=== PATIENT | female | born 1955 | race African-American/Black ===

== ENCOUNTER 2024-11-06 19:08 | Emergency (ER) | payer OTHER ==
[2024-11-06 19:17] VITALS: BP 128/78; PULSE 104; RESP 20; TEMP 98.6; BMI 27.1
[2024-11-06] MEDS ORDERED: ALBUTEROL SO4 2.5/IPRATROPIUM 0.5 INH SOL 3 ML VIAL.NEB. NEB ONE (21:14)
[2024-11-06] MEDS: ALBUTEROL SO4 2.5/IPRATROPIUM 0.5 INH SOL 3 ML VIAL.NEB. NEB ONE (21:30)
[2024-11-06 22:25] LABS: BASO % 0.3 % (0-2.0); HEMATOCRIT 41.3 % (32.4-45.2); LYMPH % 15.5 % (8-40); MCH 30.9 pg (25.7-33.7); MCHC 33.9 g/dl (32.0-36.0); MEAN CELL VOLUME 91.3 fl (80-96); MEAN PLT VOLUME 7.4 fl (7.5-11.1); MONO % 3.4 % (3.8-10.2); NEUT % 80.8 % (42.8-82.8); PLATELET COUNT 247 10^3/uL (134-434); RBC 4.53 M/mm3 (3.60-5.2); RDW 15.5 % (11.6-15.6); WHITE BLOOD COUNT 6.1 K/mm3 (4.0-10.0)
[2024-11-06 22:44] LABS: POTASSIUM 4.2 mmol/L (3.5-5.1)
[2024-11-06 22:46] LABS: ALBUMIN 3.8 g/dl (3.4-5.0); BLOOD UREA NITROGEN 17.6 mg/dL (7-18); CALCIUM 9.8 mg/dL (8.5-10.1); MAGNESIUM 2.1 mg/dL (1.8-2.4)
[2024-11-06 22:50] LABS: INR 1.07 (0.83-1.09); PROTHROMBIN TIME (PATIENT) 11.7 SEC (9.7-13.0)
[2024-11-06 22:51] LABS: BILIRUBIN,TOTAL 0.7 mg/dL (0.2-1); TOT PROT 6.8 g/dl (6.4-8.2)
[2024-11-06 22:52] LABS: ACTIVATED PTT 27.9 SECONDS (25.2-36.5)
[2024-11-06 22:54] LABS: N-TERMINAL BNP 41.1 pg/ml (5-125)
== END 2024-11-06 23:52 | disposition home or self-care (01) ==
LOC: JER 19:08
PROC: 3E0F7GC Introduction of Other Therapeutic Substance into Respiratory Tract, Via Natural or Artificial Opening (ICD-10-PCS; principal; 2024-11-06)
DX: J45.30 Mild persistent asthma, uncomplicated (principal); R06.02 Shortness of breath; R00.0 Tachycardia, unspecified; Z20.822 Contact with and (suspected) exposure to COVID-19
CPT/HCPCS: 0241U-QW; 36415; 71045-TC-FY; 80053; 83735; 83880; 84484; 85025; 85379; 85610; 85730; 93005; 93010; 99285-25

== ENCOUNTER 2024-11-08 12:08 | Observation (INO) | payer OTHER ==
[2024-11-08 12:14] VITALS: BMI 27.1
[2024-11-08 14:07] LABS: BASO % 0.1 % (0-2.0); EOS % 0.1 % (0-4.5); HEMATOCRIT 43.6 % (32.4-45.2); HEMOGLOBIN 15.1 GM/dL (10.7-15.3); LYMPH % 11.9 % (8-40); MCH 31.3 pg (25.7-33.7); MCHC 34.6 g/dl (32.0-36.0); MEAN CELL VOLUME 90.5 fl (80-96); MEAN PLT VOLUME 8.5 fl (7.5-11.1); MONO % 2.9 % (3.8-10.2); PLATELET COUNT 348 10^3/uL (134-434); RBC 4.82 M/mm3 (3.60-5.2); RDW 15.4 % (11.6-15.6); WHITE BLOOD COUNT 7.7 K/mm3 (4.0-10.0)
[2024-11-08 14:15] LABS: INR 0.97 (0.83-1.09); PROTHROMBIN TIME (PATIENT) 10.6 SEC (9.7-13.0)
[2024-11-08 14:18] LABS: ACTIVATED PTT 18.9 SECONDS (25.2-36.5)
[2024-11-08] MEDS ORDERED: ALBUTEROL SO4 2.5/IPRATROPIUM 0.5 INH SOL 3 ML VIAL.NEB. NEB ONE (14:23)
[2024-11-08 14:25] LABS: VENOUS BASE EXCESS 1.2 mmol/L (-2-2); VENOUS O2 SATURATION 87.6 % (70-80); VENOUS PCO2 24.1 mmHg (38-52); VENOUS PH 7.565 (7.310-7.410)
[2024-11-08] MEDS: ALBUTEROL SO4 2.5/IPRATROPIUM 0.5 INH SOL 3 ML VIAL.NEB. NEB SCH (14:26)
[2024-11-08 14:35] LABS: POTASSIUM 4.8 mmol/L (3.5-5.1)
[2024-11-08 14:39] LABS: ALBUMIN 3.6 g/dl (3.4-5.0); BLOOD UREA NITROGEN 19.8 mg/dL (7-18); CALCIUM 9.7 mg/dL (8.5-10.1)
[2024-11-08 14:42] LABS: CREATININE 1.1 mg/dL (0.55-1.3)
[2024-11-08 14:43] LABS: BILIRUBIN,TOTAL 1.4 mg/dL (0.2-1); TOT PROT 7.2 g/dl (6.4-8.2)
[2024-11-08 14:44] LABS: N-TERMINAL BNP 26.9 pg/ml (5-125)
[2024-11-08] MEDS: LACTATED RINGERS SOLUTION 1,000 ML/1,000 ML INFUS.BAG IV SCH (18:22)
[2024-11-08] MEDS ORDERED: LEVALBUTEROL HCL 0.63 MG/3 ML VIAL.NEB. IH ONE (19:27)
[2024-11-08] MEDS ORDERED: LEVALBUTEROL HCL 0.31 MG/3 ML VIAL.NEB IH ONE (19:27)
[2024-11-08] MEDS: LEVALBUTEROL HCL 0.31 MG/3 ML VIAL.NEB IH SCH (19:32)
[2024-11-08] MEDS ORDERED: ZOLPIDEM TARTRATE 5 MG TABLET ONE (20:59)
[2024-11-08] MEDS ORDERED: ATORVASTATIN CA 20 MG TABLET (FP) ONE (21:00)
[2024-11-08] MEDS ORDERED: HEPARIN NA (PORCINE) 5,000 UNITS/ML 1ML VIAL ONE (21:00)
[2024-11-08] MEDS: ZOLPIDEM TARTRATE 5 MG TABLET PO ONE (21:06)
[2024-11-08] MEDS: HEPARIN NA (PORCINE) 5,000 UNITS/ML 1ML VIAL SQ SCH (21:07)
[2024-11-08] MEDS: ATORVASTATIN CA 20 MG TABLET (FP) PO SCH (21:07)
[2024-11-09 07:55] LABS: BASO % 0.4 % (0-2.0); EOS % 0.6 % (0-4.5); HEMATOCRIT 44.3 % (32.4-45.2); HEMOGLOBIN 15.1 GM/dL (10.7-15.3); LYMPH % 33.1 % (8-40); MCHC 34.1 g/dl (32.0-36.0); MEAN CELL VOLUME 90.8 fl (80-96); MEAN PLT VOLUME 7.3 fl (7.5-11.1); MONO % 7.3 % (3.8-10.2); NEUT % 58.6 % (42.8-82.8); PLATELET COUNT 262 10^3/uL (134-434); RBC 4.88 M/mm3 (3.60-5.2); RDW 15.6 % (11.6-15.6); WHITE BLOOD COUNT 8.7 K/mm3 (4.0-10.0)
[2024-11-09 08:32] VITALS: TEMP 97.9
[2024-11-09] MEDS: predniSONE 20 MG TABLET (UD) PO SCH (10:37)
[2024-11-09] MEDS: SPIRONOLACTONE 25 MG TABLET PO SCH (10:37)
[2024-11-09] MEDS: FLUTICASONE/UMECLIDIN/VILANTER(200-62.5-25 TRELEGY ELLIPTA) INAHLER IH SCH (10:37)
[2024-11-09] MEDS: CLOPIDOGREL BISULFATE 75 MG TABLET (FP) PO SCH (10:37)
[2024-11-09] MEDS: LOSARTAN POTASSIUM 50 MG TABLET PO SCH (10:37)
[2024-11-09 13:37] LABS: BASO % 0.3 % (0-2.0); HEMATOCRIT 42.4 % (32.4-45.2); HEMOGLOBIN 14.5 GM/dL (10.7-15.3); LYMPH % 10.2 % (8-40); MCH 31.1 pg (25.7-33.7); MCHC 34.2 g/dl (32.0-36.0); MEAN CELL VOLUME 91.1 fl (80-96); MEAN PLT VOLUME 7.5 fl (7.5-11.1); MONO % 2.5 % (3.8-10.2); PLATELET COUNT 261 10^3/uL (134-434); RBC 4.66 M/mm3 (3.60-5.2); RDW 15.5 % (11.6-15.6); WHITE BLOOD COUNT 7.4 K/mm3 (4.0-10.0)
[2024-11-09 14:00] LABS: POTASSIUM 3.8 mmol/L (3.5-5.1)
[2024-11-09 14:02] LABS: BLOOD UREA NITROGEN 20.4 mg/dL (7-18); CALCIUM 9.2 mg/dL (8.5-10.1); MAGNESIUM 2.1 mg/dL (1.8-2.4)
[2024-11-09 15:28] VITALS: BP 127/80; PULSE 78; RESP 18
== END 2024-11-09 18:26 | disposition home or self-care (01) ==
LOC: JER 12:08 → JERBED 17:08 → J4S 11-09 02:25
PROVIDERS: ADMIT Internal Medicine
PROC: 3E0F7GC Introduction of Other Therapeutic Substance into Respiratory Tract, Via Natural or Artificial Opening (ICD-10-PCS; principal; 2024-11-08)
PROC: 3E0337Z Introduction of Electrolytic and Water Balance Substance into Peripheral Vein, Percutaneous Approach (ICD-10-PCS; 2024-11-08)
DX: J45.901 Unspecified asthma with (acute) exacerbation (principal); E78.5 Hyperlipidemia, unspecified; F41.9 Anxiety disorder, unspecified; I10 Essential (primary) hypertension; Z86.73 Personal history of transient ischemic attack (TIA), and cerebral infarction without residual deficits; Z90.79 Acquired absence of other genital organ(s); Z88.8 Allergy status to other drugs, medicaments and biological substances
CPT/HCPCS: 0241U-QW; 36415; 71046-TC-FY; 71275-TC; 80048; 80053; 82803; 83735; 83880; 84484; 85025; 85027; 85610; 85730; 93005; 93010; 94640; 96360; 99285-25; G0378; J1644

== ENCOUNTER 2024-11-24 05:50 | Observation (INO) | payer OTHER ==
[2024-11-24] MEDS: ONDANSETRON 4 MG/2 ML VIAL IVPB ONE (06:43)
[2024-11-24] MEDS ORDERED: ONDANSETRON *ODT* 4 MG TABLET ONE (06:46)
[2024-11-24] MEDS: LORazepam 2 MG TABLET PO ONE (06:49)
[2024-11-24] MEDS: ONDANSETRON 4 MG TABLET PO ONE (06:49)
[2024-11-24 06:57] LABS: HEMOGLOBIN 14.5 GM/dL (10.7-15.3); MCHC 33.6 g/dl (32.0-36.0); MEAN CELL VOLUME 92.2 fl (80-96); PLATELET COUNT 258 10^3/uL (134-434); RBC 4.66 M/mm3 (3.60-5.2); RDW 14.7 % (11.6-15.6); WHITE BLOOD COUNT 7.9 K/mm3 (4.0-10.0)
[2024-11-24 07:18] LABS: POTASSIUM 3.6 mmol/L (3.5-5.1)
[2024-11-24 07:19] LABS: CALCIUM 9.1 mg/dL (8.5-10.1)
[2024-11-24 07:20] LABS: ALBUMIN 3.5 g/dl (3.4-5.0); BLOOD UREA NITROGEN 13.3 mg/dL (7-18)
[2024-11-24 07:23] LABS: CREATININE 0.9 mg/dL (0.55-1.3)
[2024-11-24 07:24] LABS: BILIRUBIN,TOTAL 1.2 mg/dL (0.2-1)
[2024-11-24 07:25] LABS: TOT PROT 6.1 g/dl (6.4-8.2)
[2024-11-24 07:48] LABS: CHLORIDE 85 mmol/L (98-107); POTASSIUM 4.8 mmol/L (3.5-5.1)
[2024-11-24 07:50] LABS: CALCIUM 9.3 mg/dL (8.5-10.1)
[2024-11-24 07:51] LABS: HEMOGLOBIN 14.8 GM/dL (10.7-15.3); MCH 31.4 pg (25.7-33.7); MCHC 34.3 g/dl (32.0-36.0); MEAN CELL VOLUME 91.4 fl (80-96); MEAN PLT VOLUME 7.2 fl (7.5-11.1); PLATELET COUNT 267 10^3/uL (134-434); RBC 4.71 M/mm3 (3.60-5.2); RDW 14.7 % (11.6-15.6); WHITE BLOOD COUNT 6.8 K/mm3 (4.0-10.0)
[2024-11-24 07:51] LABS: ALBUMIN 3.6 g/dl (3.4-5.0); BLOOD UREA NITROGEN 12.5 mg/dL (7-18); CO2 23 mmol/L (21-32); GLUCOSE,RANDOM 118 mg/dL (74-106)
[2024-11-24 07:53] LABS: SGOT/AST 39 U/L (15-37)
[2024-11-24 07:54] LABS: SGPT/ALT 23 U/L (13-61)
[2024-11-24 07:55] LABS: BILIRUBIN,TOTAL 1.4 mg/dL (0.2-1); TOT PROT 6.6 g/dl (6.4-8.2)
[2024-11-24 08:17] LABS: ANION GAP 11 mmol/L (4-13); SODIUM 119 mmol/L (136-145)
[2024-11-24 08:18] LABS: ALK PHOS 78 U/L (45-117)
[2024-11-24 08:27] LABS: VENOUS BASE EXCESS -1.5 mmol/L (-2-2); VENOUS O2 SATURATION 47.6 % (70-80); VENOUS PCO2 34.5 mmHg (38-52); VENOUS PH 7.425 (7.310-7.410)
[2024-11-24] MEDS: SODIUM CHLORIDE 0.9% 500 ML INFUS.BAG IV ONE (09:20)
[2024-11-24 09:31] LABS: ANISOCYTOSIS 0; HELMET CELLS 0; HOWELL-JOLLY BODIES 0; MACROCYTOSIS 0; OVALOCYTE 0; ROULEAU 0; SICKELED CELLS 0; TARGET CELLS 0; TEAR DROP CELLS 0; TOXIC GRANULATION 0
[2024-11-24] MEDS ORDERED: ATORVASTATIN CA 20 MG TABLET (FP) ONE ×2 (11:24→11:41)
[2024-11-24] MEDS ORDERED: CLOPIDOGREL BISULFATE 75 MG TABLET (FP) ONE (11:24)
[2024-11-24] MEDS ORDERED: LOSARTAN POTASSIUM 50 MG TABLET ONE (11:24)
[2024-11-24] MEDS ORDERED: SPIRONOLACTONE 25 MG TABLET ONE (11:24)
[2024-11-24] MEDS: SPIRONOLACTONE 25 MG TABLET PO ONE (11:44)
[2024-11-24] MEDS: LOSARTAN POTASSIUM 50 MG TABLET PO ONE (11:45)
[2024-11-24] MEDS: ATORVASTATIN CA 20 MG TABLET (FP) PO ONE (11:45)
[2024-11-24] MEDS: ISOSORBIDE DINITRATE 5 MG TABLET PO ONE (11:45)
[2024-11-24] MEDS: ISOSORBIDE DINITRATE 10 MG TABLET PO ONE (11:46)
[2024-11-24] MEDS: CLOPIDOGREL BISULFATE 75 MG TABLET (FP) PO ONE (11:46)
[2024-11-24 12:01] LABS: ANISOCYTOSIS 0; HELMET CELLS 0; HOWELL-JOLLY BODIES 0; MACROCYTOSIS 0; OVALOCYTE 0; ROULEAU 0; SICKELED CELLS 0; TARGET CELLS 0; TEAR DROP CELLS 0; TOXIC GRANULATION 0
[2024-11-24 13:47] LABS: PH,URINE 7.5 (5.0-8.0); URINE APPEARANCE CLEAR; URINE BILIRUBIN NEGATIVE (NEGATIVE); URINE COLOR YELLOW; URINE GLUCOSE (UA) NEGATIVE (NEGATIVE); URINE KETONE NEGATIVE (NEGATIVE); URINE LEUK ESTERASE NEGATIVE (NEGATIVE); URINE NITRITE NEGATIVE (NEGATIVE); URINE PROTEIN NEGATIVE (NEGATIVE); URINE UROBILINOGEN 0.2 mg/dL (0.2-1.0)
[2024-11-24 13:47] LABS: POTASSIUM 3.8 mmol/L (3.5-5.1)
[2024-11-24 13:50] LABS: BLOOD UREA NITROGEN 9.3 mg/dL (7-18)
[2024-11-24 13:53] LABS: CREATININE 0.9 mg/dL (0.55-1.3)
[2024-11-24 17:08] LABS: BILIRUBIN,DIRECT 0.3 mg/dL (0.0-0.2)
[2024-11-24 18:23] VITALS: BMI 26.8
[2024-11-24] MEDS: MELATONIN 5 MG TABLETS PO PRN (20:24)
[2024-11-24] MEDS: MELATONIN 5 MG TABLETS PO ONE (20:25)
[2024-11-24 21:18] LABS: POTASSIUM 3.9 mmol/L (3.5-5.1)
[2024-11-24 21:20] LABS: CALCIUM 8.9 mg/dL (8.5-10.1)
[2024-11-24 21:21] LABS: BLOOD UREA NITROGEN 15.2 mg/dL (7-18)
[2024-11-24 21:24] LABS: CREATININE 1.1 mg/dL (0.55-1.3)
[2024-11-24 23:31] LABS: BLOOD UREA NITROGEN 17.3 mg/dL (7-18); CALCIUM 8.9 mg/dL (8.5-10.1)
[2024-11-25 09:42] LABS: POTASSIUM 3.8 mmol/L (3.5-5.1)
[2024-11-25 09:48] LABS: CALCIUM 9.3 mg/dL (8.5-10.1)
[2024-11-25 09:49] LABS: ALBUMIN 3.5 g/dl (3.4-5.0); BLOOD UREA NITROGEN 13.2 mg/dL (7-18)
[2024-11-25 09:52] LABS: CREATININE 1.1 mg/dL (0.55-1.3)
[2024-11-25 09:54] LABS: TOT PROT 6.4 g/dl (6.4-8.2)
[2024-11-25 09:55] LABS: BILIRUBIN,TOTAL 1.3 mg/dL (0.2-1)
[2024-11-25] MEDS: ENOXAPARIN NA (PORCINE) 40 MG/0.4 ML DISP.SYRIN SQ SCH (11:31)
[2024-11-25] MEDS: CLOPIDOGREL BISULFATE 75 MG TABLET (FP) PO SCH ×2 (11:32)
[2024-11-25] MEDS: LOSARTAN POTASSIUM 50 MG TABLET PO SCH (11:32)
[2024-11-25] MEDS: FLUTICASONE/UMECLIDIN/VILANTER(200-62.5-25 TRELEGY ELLIPTA) INAHLER IH SCH (15:20)
[2024-11-25 17:42] VITALS: RESP 18
[2024-11-25] MEDS: ATORVASTATIN CA 20 MG TABLET (FP) PO SCH (21:18)
[2024-11-26 06:02] VITALS: TEMP 98.1
[2024-11-26 09:25] LABS: BASO % 0.3 % (0-2.0); EOS % 0.6 % (0-4.5); HEMATOCRIT 43.1 % (32.4-45.2); HEMOGLOBIN 14.4 GM/dL (10.7-15.3); LYMPH % 26.1 % (8-40); MCH 30.6 pg (25.7-33.7); MCHC 33.5 g/dl (32.0-36.0); MEAN CELL VOLUME 91.3 fl (80-96); MONO % 7.9 % (3.8-10.2); NEUT % 65.1 % (42.8-82.8); PLATELET COUNT 250 10^3/uL (134-434); RBC 4.72 M/mm3 (3.60-5.2); RDW 15.3 % (11.6-15.6); WHITE BLOOD COUNT 5.9 K/mm3 (4.0-10.0)
[2024-11-26 09:42] LABS: POTASSIUM 3.3 mmol/L (3.5-5.1)
[2024-11-26 09:45] LABS: BLOOD UREA NITROGEN 14.2 mg/dL (7-18); CALCIUM 8.7 mg/dL (8.5-10.1)
[2024-11-26 09:49] LABS: CREATININE 0.9 mg/dL (0.55-1.3)
[2024-11-26 09:50] LABS: BILIRUBIN,TOTAL 0.8 mg/dL (0.2-1); TOT PROT 5.6 g/dl (6.4-8.2)
[2024-11-26] MEDS: POTASSIUM CHLORIDE ORAL LIQUID 20 MEQ/15 ML PO ONE (11:24)
[2024-11-26 14:37] VITALS: BP 122/63; PULSE 94
== END 2024-11-26 16:12 | disposition home or self-care (01) ==
LOC: JER 05:50 → INTOOBSV 10:27 → JERBED 10:27 → UNDOADMOB 10:27 → JERBED 11:59 → J5S 17:25
PROVIDERS: ADMIT Internal Medicine
PROC: 3E0337Z Introduction of Electrolytic and Water Balance Substance into Peripheral Vein, Percutaneous Approach (ICD-10-PCS; principal; 2024-11-24)
DX: E87.1 Hypo-osmolality and hyponatremia (principal); R06.02 Shortness of breath; I10 Essential (primary) hypertension; E78.5 Hyperlipidemia, unspecified; E80.6 Other disorders of bilirubin metabolism; J45.909 Unspecified asthma, uncomplicated; Z86.73 Personal history of transient ischemic attack (TIA), and cerebral infarction without residual deficits
CPT/HCPCS: 36415; 71045-TC-FY; 80048; 80053; 80061; 81003; 82248; 82533; 82570; 82803; 83930; 83935; 84300; 84439; 84443; 84484; 85025; 93005; 93010; 93306-TC; 99285-25; G0378